=== PATIENT | male | born 1940 | race Caucasian/White ===

== ENCOUNTER → 2017-12-22 | Outpatient (CLI) | payer OTHER, MEDICARE | LOC: FIMAGING 13:30 | PROVIDERS: ATTEND Internal Medicine Geriatric Medicine | DX: M48.061 Spinal stenosis, lumbar region without neurogenic claudication (principal); M51.36 Other intervertebral disc degeneration, lumbar region; M51.86 Other intervertebral disc disorders, lumbar region; M25.78 Osteophyte, vertebrae ==